=== PATIENT | male | born 1955 | race Caucasian/White ===

== ENCOUNTER → 2024-09-08 13:16 | Outpatient (REF) | payer MEDICARE, SELFPAY | LOC: PAVMRI 13:16 | PROVIDERS: ATTENDING PHYSICIAN Physician Assistant Medical; PRIMARYCARE PHYSICIAN Family Medicine | DX: M48.062 Spinal stenosis, lumbar region with neurogenic claudication (principal) | CPT/HCPCS: 72148 ==